=== PATIENT | female | born 1995 | race African-American/Black ===

== ENCOUNTER → 2016-04-01 15:37 | Outpatient (CLI) | payer BC ==
[~2016-04-01 15:37] MED LIST: HUMALOG 30100 UNITS/ SC; LANTUS INSULIN10 ML SC; PRENATAL COMPLE1 TAB PO
== END | disposition home or self-care (01) ==
LOC: D.ER 15:37 → D.LDO 15:37
DX: Z34.90 Encounter for supervision of normal pregnancy, unspecified, unspecified trimester (principal); V43.52XA Car driver injured in collision with other type car in traffic accident, initial encounter; Y92.410 Unspecified street and highway as the place of occurrence of the external cause

== ENCOUNTER 2016-04-14 20:30 | Outpatient (CLI) | payer BC ==
[2016-04-14 21:04] LABS: APPEARANCE HAZY (CLEAR); COLOR YELLOW (YELLOW); GLUCOSE NEGATIVE (NEGATIVE); KETONE LARGE mg/dL (NEGATIVE); LEUKOCYTE ESTERASE TRACE (NEGATIVE); NITRITE NEGATIVE (NEGATIVE); PROTEIN TRACE mg/dL (NEGATIVE); SPECIFIC GRAVITY 1.015 (1.005-1.020)
[2016-04-14 21:05] LABS: BILIRUBIN NEGATIVE (NEGATIVE)
[2016-04-14 21:07] LABS: BACTERIA MANY /hpf (NONE SEEN); MUCUS <1+ /lpf (NONE SEEN); RED CELLS - URINE 0-5 /hpf (0-5); WHITE CELLS - URINE 0-5 /hpf (0-5)
[2016-05-27] MEDS ORDERED: HUMALOG 30100 UNITS/ SC (09:25)
[2016-05-27] MEDS ORDERED: LANTUS INSULIN10 ML SC (09:25)
[2016-05-27] MEDS ORDERED: PRENATAL COMPLE1 TAB PO (09:25)
[2016-06-21] MEDS ORDERED: SYNTHROID100 MCG PO (13:48)
[2016-06-22 10:42] VITALS: BMI 32.3
== END 2016-04-15 07:15 | disposition home or self-care (01) ==
LOC: D.LD 20:30 → D.LDO 20:30 → D.LD 21:24 → D.LDO 04-15 07:15
PROVIDERS: Obstetrics & Gynecology
DX: O21.9 Vomiting of pregnancy, unspecified (principal)

== ENCOUNTER → 2016-05-06 10:46 | Outpatient (CLI) | payer BC ==
[~2016-05-06 10:46] MED LIST changes: +IBUPROFEN600 MG PO; +PERCOCET 5-3251 TAB PO; +SYNTHROID100 MCG PO
[2016-06-22 10:42] VITALS: BMI 32.3
== END | disposition home or self-care (01) ==
LOC: D.LDO 10:46
DX: O24.013 Pre-existing type 1 diabetes mellitus, in pregnancy, third trimester (principal); Z3A.32 32 weeks gestation of pregnancy

== ENCOUNTER → 2016-05-10 09:55 | Outpatient (CLI) | payer BC ==
[2016-06-22 10:42] VITALS: BMI 32.3
== END | disposition home or self-care (01) ==
LOC: D.LDO 09:55
DX: O24.913 Unspecified diabetes mellitus in pregnancy, third trimester (principal); Z3A.32 32 weeks gestation of pregnancy

== ENCOUNTER → 2016-05-13 10:05 | Outpatient (CLI) | payer BC ==
[2016-06-22 10:42] VITALS: BMI 32.3
== END | disposition home or self-care (01) ==
LOC: D.LDO 10:05
DX: O24.913 Unspecified diabetes mellitus in pregnancy, third trimester (principal); Z3A.33 33 weeks gestation of pregnancy

== ENCOUNTER → 2016-05-14 19:34 | Outpatient (CLI) | payer BC ==
[2016-06-22 10:42] VITALS: BMI 32.3
== END | disposition home or self-care (01) ==
LOC: D.LABREF 19:34 → D.LDO 19:34
DX: O36.8130 Decreased fetal movements, third trimester, not applicable or unspecified (principal); Z3A.33 33 weeks gestation of pregnancy; O24.313 Unspecified pre-existing diabetes mellitus in pregnancy, third trimester; E11.9 Type 2 diabetes mellitus without complications

== ENCOUNTER → 2016-05-17 10:00 | Outpatient (CLI) | payer BC ==
[2016-06-22 10:42] VITALS: BMI 32.3
== END | disposition home or self-care (01) ==
LOC: D.LDO 10:00
DX: O24.913 Unspecified diabetes mellitus in pregnancy, third trimester (principal); Z3A.33 33 weeks gestation of pregnancy

== ENCOUNTER → 2016-05-20 13:48 | Outpatient (CLI) | payer BC ==
[2016-06-22 10:42] VITALS: BMI 32.3
== END | disposition home or self-care (01) ==
LOC: D.LDO 13:48
DX: O24.913 Unspecified diabetes mellitus in pregnancy, third trimester (principal); Z3A.34 34 weeks gestation of pregnancy

== ENCOUNTER → 2016-05-24 17:57 | Outpatient (CLI) | payer BC ==
[2016-06-22 10:42] VITALS: BMI 32.3
== END | disposition home or self-care (01) ==
LOC: D.LDO 17:57
DX: O24.913 Unspecified diabetes mellitus in pregnancy, third trimester (principal); Z3A.34 34 weeks gestation of pregnancy

== ENCOUNTER → 2016-05-27 09:10 | Outpatient (CLI) | payer BC ==
[2016-06-22 10:42] VITALS: BMI 32.3
== END | disposition home or self-care (01) ==
LOC: D.LDO 09:10
DX: O24.313 Unspecified pre-existing diabetes mellitus in pregnancy, third trimester (principal); Z3A.35 35 weeks gestation of pregnancy

== ENCOUNTER → 2016-05-31 12:29 | Outpatient (CLI) | payer BC ==
[2016-06-22 10:42] VITALS: BMI 32.3
== END | disposition home or self-care (01) ==
LOC: D.LDO 12:29
DX: O24.913 Unspecified diabetes mellitus in pregnancy, third trimester (principal); Z3A.35 35 weeks gestation of pregnancy

== ENCOUNTER → 2016-06-03 14:04 | Outpatient (CLI) | payer BC ==
[2016-06-22 10:42] VITALS: BMI 32.3
== END | disposition home or self-care (01) ==
LOC: D.LDO 14:04
DX: O26.893 Other specified pregnancy related conditions, third trimester (principal); Z3A.36 36 weeks gestation of pregnancy

== ENCOUNTER → 2016-06-07 11:55 | Outpatient (CLI) | payer BC ==
[2016-06-22 10:42] VITALS: BMI 32.3
== END | disposition home or self-care (01) ==
LOC: D.LDO 11:55
DX: O24.913 Unspecified diabetes mellitus in pregnancy, third trimester (principal); Z3A.36 36 weeks gestation of pregnancy

== ENCOUNTER → 2016-06-10 11:25 | Outpatient (CLI) | payer BC ==
[~2016-06-10 11:25] MED LIST changes: -IBUPROFEN600 MG PO; -PERCOCET 5-3251 TAB PO; -SYNTHROID100 MCG PO
== END | disposition home or self-care (01) ==
LOC: D.LDO 11:25
DX: O24.913 Unspecified diabetes mellitus in pregnancy, third trimester (principal); Z3A.37 37 weeks gestation of pregnancy

== ENCOUNTER → 2016-06-14 13:06 | Outpatient (CLI) | payer BC ==
[~2016-06-14 13:06] MED LIST changes: +IBUPROFEN600 MG PO; +PERCOCET 5-3251 TAB PO; +SYNTHROID100 MCG PO
[2016-06-22 10:42] VITALS: BMI 32.3
== END | disposition home or self-care (01) ==
LOC: D.LDO 13:06
DX: O24.419 Gestational diabetes mellitus in pregnancy, unspecified control (principal); Z3A.37 37 weeks gestation of pregnancy

== ENCOUNTER → 2016-06-17 09:06 | Outpatient (CLI) | payer BC ==
[2016-06-22 10:42] VITALS: BMI 32.3
== END | disposition home or self-care (01) ==
LOC: D.LDO 09:06
DX: Z34.93 Encounter for supervision of normal pregnancy, unspecified, third trimester (principal); Z3A.38 38 weeks gestation of pregnancy

== ENCOUNTER → 2016-06-18 21:08 | Outpatient (CLI) | payer BC ==
[2016-06-18 21:42] LABS: APPEARANCE CLEAR (CLEAR); BILIRUBIN NEGATIVE (NEGATIVE); COLOR YELLOW (YELLOW); GLUCOSE NEGATIVE (NEGATIVE); KETONE NEGATIVE (NEGATIVE); LEUKOCYTE ESTERASE 1+ (NEGATIVE); NITRITE NEGATIVE (NEGATIVE); PROTEIN NEGATIVE (NEGATIVE); UROBILINOGEN NORMAL (NORMAL)
[2016-06-18 21:44] LABS: BACTERIA MANY /hpf (NONE SEEN); MUCUS <1+ /lpf (NONE SEEN); RED CELLS - URINE 0-5 /hpf (0-5)
[2016-06-22 10:42] VITALS: BMI 32.3
== END | disposition home or self-care (01) ==
LOC: D.LDO 21:08
PROVIDERS: Obstetrics & Gynecology
DX: Z34.03 Encounter for supervision of normal first pregnancy, third trimester (principal); Z3A.38 38 weeks gestation of pregnancy; R51 Headache

== ENCOUNTER → 2016-06-21 13:41 | Outpatient (CLI) | payer BC | END | disposition home or self-care (01) | LOC: D.LDO 13:41 | DX: O24.913 Unspecified diabetes mellitus in pregnancy, third trimester (principal); Z3A.38 38 weeks gestation of pregnancy ==

== ENCOUNTER 2016-06-22 10:15 | Inpatient (IN) | payer BC ==
[2016-06-22] VITALS (11 sets, daily range): BP systolic 120–160; BP diastolic 64–91; Ht 165.1 cm; Wt 88.0 kg
[~2016-06-22] VITALS: Ht 165.1 cm; Wt 88.0 kg
[~2016-06-22 10:15] MED LIST changes: -IBUPROFEN600 MG PO; -PERCOCET 5-3251 TAB PO
[2016-06-22 10:47] LABS: HEMATOCRIT 36.7 % (36.0-48.0); HEMOGLOBIN 12.3 g/dL (12-16); MCH 27.6 pg (26.0-34.0); MCHC 33.5 g/dL (31.0-37.0); MCV 82.5 fL (80.0-100.0); MEAN PLATELET VOLUME 11.1 fL (7.4-10.4); RBC 4.45 10x6/uL (4.00-5.40); RDW 13.7 % (11.5-14.5); WBC 10.7 10x3/uL (4.8-10.8)
--- NOTE | 2016-06-22 14:48 | NUR ---
PALPATED FUNDUS FIRM AND MIDLINE
--- NOTE | 2016-06-22 15:00 | NUR ---
PT WAS RECEIVED FROM RECOVER POST C-SEC. SHE IS AWAKE AND ALERT. FAMILY AT BEDSIDE. GEN- AWAKE AND ALERTL LUNGS- CLEAR. HEART- RRR. ABD - SOFT WITH TENDERNESS. FUNDUS FIRM. PT GUARDING. BULKY DRESSING OVER BIKINI LINE INCISION. EXT PULSE PALPABLE. SCD'S NOTE LE. ICE PACK PLACED OVER INCISION. SMALL LOCIA RUBRA. WEINER CATH INTACT AND IS SECURED TO R THIGH. 75 CC Y[place]ASTA COLORED URINE NOTED IN BAG. IV PATENT R FOREARM. NS WITH PIT INFUSING AT 125 CC/HR. DEMEROL FRAME REPAIRER 10 MG Q 10 MIN. PT EDUCATED ON FRAME REPAIRER, INCENTIVE SPIROMETRY, WEINER, SCD'S, MONITORING OF VS AND ICE PACK. PT VERBALIZES UNDERSTANDING.
--- NOTE | 2016-06-22 15:30 | NUR ---
PT INSTRUCTED ON CLEAR LIQUIDS. GAVE HER ICE WATER AND ICE CHIPS FOR NOW.
--- NOTE | 2016-06-22 17:53 | NUR ---
PT IS HOLDING HER BABY. GETTING READY TO EAT AND THEN BREASTFEED. PTS PAIN LEVEL IS A 4. UOP IS 750 CC. WEINER INTACT. IV PATENT R FOREARM- NS WITH PIT- 367 AND DILAUDID CAREER COACH 9.9 ML. HER BED PADS WERE CHANGED AND ANA PADS. MODERATE LOCIA RUBRA. BED IS LOW SIDE RAILS UP X 2 AND CALL LIGHT IN REACH.
--- NOTE | 2016-06-22 19:25 | NUR ---
PM ROUNDS MADE, PT VISITING WITH FOB, BABY AT BEDSIDE IN OPEN CRIB CART, INFORMED PT THAT I WILL BE BACK SHORTLY TO DO ASSESSMENT, PT VERBALIZES UNDERSTANDING, DENIES NEEDS AT THIS TIME
--- NOTE | 2016-06-22 20:25 | NUR ---
ASSESSMENT PER FLOW SHEET, VS OBTAINED, IV IN LEFT WRIST INTACT WITH NO REDNESS OR EDEMA INFUSING VIA PUMP NS WITH PITOCIN AT 125 ML/HR, DEMEROL TRUST AND ESTATES ATTORNEY TO DELIVER 10MG/10MINS PER PT'S DEMAND FOR PAIN MANAGEMENT, FF, ML, U/1, LITE BLEEDING WITH NO CLOTS NOTED, BIKINI INC WITH LARGE DRESSING CDI WITH NO DRAINAGE NOTED, ICE PACK TO ABD, PT REPORTS FLATUS, WEINER CATH INTACT DRAINING DARK YELLOW URINE, PT ENC TO DRINK PLENTY OF FLUIDS, PT REQUESTED AND SERVED ICE CHIPS AT THIS TIME, SCD'S ON AND WORKING PROPERLY, DINNER TRAY AND TRASH REMOVED, PT DENIES FURTHER NEEDS
--- NOTE | 2016-06-22 21:30 | NUR ---
SPOKE TO DR EELNA REGARDING PT'S ORDERS FOR FSBS, DR ELENA REPORTS TO DO FSBS NOW, 1AM, AND 5AM, THEN CONTINUE WITH FASTING AND 1 HOUR POST PRANDIAL, ALSO, MAKE SURE THAT DAY SHIFT KNOWS TO CONS DR WILEY
--- NOTE | 2016-06-22 21:42 | NUR ---
PT BABY, FSBS 55, ASKED PT HOW SHE TAKES HER INSULIN, PT STATES "I TAKE 24 UNITS OF LANTUS AT NIGHT, I LAST TOOK THAT AT MIDNIGHT (06/22), AND THE HUMALOG , ITS A SLIDING SCALE, I TAKE 1 UNIT IF MY BLOOD SUGAR IS OVER 120 AND WHEN EATING 7 GRAMS OF CARBS, BEFORE AND AFTER, I TAKE 1 UNIT, I LAST DID THAT AT 8PM YESTERDAY", PT REPORTS JUST DRINKING JUICE WHEN BS IS LOW, INFORMED PT THAT I WILL INFORM THE DOCTOR OF BS AND HOW SHE TAKES HER INSULIN, PT VERBALIZES UNDERSTANDING
--- NOTE | 2016-06-22 21:47 | NUR ---
DR ELENA ON L&D UNIT, REPORT OF PTS BS, INSULIN REGIMEN, AND WHAT PT DOES FOR LOW BS, DR ELENA REPORTS TO GIVE PT MILK, TERESA CRACKERS AND PEANUT BUTTER
--- NOTE | 2016-06-22 21:55 | NUR ---
PT REFUSES TERESA CRACKERS AND PEANUT BUTTER, STATES "I USUALLY JUST DRINK JUICE", PT SERVED ORANGE JUICE AT THIS TIME, INFORMED PT THAT I WILL BE BACK IN ABOUT 20-30 MINUTES TO RECHECK BS, PT VERBALIZES UNDERSTANDING
--- NOTE | 2016-06-22 22:30 | NUR ---
FSBS 50, PT INST TO DRINK 2% MILK, EAT TERESA CRACKERS AND PEANUT BUTTER SINCE BS IS LESS THAN IT WAS EARLIER, PT VERBALIZES UNDERSTANDING, PT HOLDING BABY, FOB AT BEDSIDE
--- NOTE | 2016-06-22 23:30 | NUR ---
PT BATTERY TEST ENGINEER LIGHT, PT READY TO SEND BABY TO NSY FOR A SHORT TIME, VS OBTAINED, WEINER CATH EMPTIED, FSBS 59, PT REQUESTED GRAPE JUICE ONLY, ANA CARE DONE WITH WET WARM WASH CLOTHS, ANA PAD CHANGED, LITE BLEEDING NOTE WITH NO CLOTS, FRESH ICE PACK TO ABD, PT RATES INC PAIN 07/21, PT USING ADMINISTRATIVE LIAISON INST, DENIES FURTHER NEEDS AT THIS TIME
--- NOTE | 2016-06-23 01:05 | NUR ---
PT AWAKE, FSBS 61
--- NOTE | 2016-06-23 02:08 | NUR ---
NEW BAG OF NS WITH PITOCIN HUNG IV INFUSING VIA PUMP 125 ML/HR, PT REQUESTED AND SERVED LEMON NIKOLAI SODA, PT RATES INC PAIN 07/21, STATES "IT'S FEELING MUCH BETTER", PT DENIES FURTHER NEEDS, FOB ASLEEP IN RECLINER, PT HOLDING BABY
--- NOTE | 2016-06-23 02:40 | NUR ---
PT SCIENTIFIC ASSOCIATE LIGHT, BABY TO NSY VIA OPEN CRIB CART PER THIS RN
[2016-06-23 04:15] VITALS: BP 123/75
--- NOTE | 2016-06-23 04:15 | NUR ---
PT HOLDING BABY, BABY TO NSY VIA OPEN CRIB CART PER THIS RN, VS OBTAINED, I&O'S COLLECTED, FSBS 71, BLUE CHUX AND ANA PAD CHANGED, LITE BLEEDING NOTED WITH NO CLOTS, FRESH ICE PACK, PT RATES INC PAIN AND CRAMPING 2/10, DENIES FURTHER NEEDS
--- NOTE | 2016-06-23 06:12 | NUR ---
PT JUST FINISHING UP FEEDING BABY, ADM TORADOL SIVP PER MD ORDERS, AND PERCOCET PO PER MD ORDERS, INFORMED PT THAT I WILL BE BACK SHORTLY TO SALINE LOCK IV AND REMOVE WEINER, PT VERBALIZES UNDERSTANDING
[2016-06-23 06:16] LABS: RAPID PLASMA REAGIN Non Reactive (Non Reactive)
[2016-06-23 06:32] LABS: BASOPHILS 0.1 % (0.0-2.0); EOSINOPHILS 0.1 % (0-7); HEMATOCRIT 30.3 % (36.0-48.0); HEMOGLOBIN 10.2 g/dL (12-16); IMMATURE GRANULOCYTES 0.7 % (0-5); LYMPHOCYTES 8.5 % (15-50); MCH 28.2 pg (26.0-34.0); MCHC 33.7 g/dL (31.0-37.0); MCV 83.7 fL (80.0-100.0); MEAN PLATELET VOLUME 11.6 fL (7.4-10.4); MONOCYTES 8.5 % (2-11); NEUTROPHILS 82.1 % (40-80); PLATELET COUNT 175 10x3/uL (130-400); RBC 3.62 10x6/uL (4.00-5.40); RDW 14.2 % (11.5-14.5)
[2016-06-23 06:33] LABS: WBC 15.9 10x3/uL (4.8-10.8)
--- NOTE | 2016-06-23 07:00 | NUR ---
IV CONVERTED TO SALINE LOCK, FLUSHED WITH NO DIFFICULTY, WEINER CATH REMOVED, TIP INTACT, PT INST ON USING CALL LIGHT AND [place] HAT WHEN NEEDING TO VOID, PT VERBALIZES UNDERSTANDING, PT DENIES PAIN AT THIS TIME, REPORTS THAT THE PAIN MED REALLY HELPED, PT DENIES NEEDS AT THIS TIME
[2016-06-23 07:30] VITALS: BP 136/71
--- NOTE | 2016-06-23 07:40 | NUR ---
PT WAS RECEIVED THIS AM LYING IN BED. SHE OFFERS NO COMPLAINTS THIS AM. HER MOTHER IS AT BEDSIDE. GEN- AWAKE AND ALERT. LUNGS- CLEAR. HEART- RRR. ABD SOFT, WITH TENDERNESS. FUNDUS FIRM AT U 1. INCISION COVERED WITH BULKY DRESSING. CLEAN AND DRY. MOD LOCIA RUBRA. BED IS LOW, SIDE RAILS UP X 2 AND CALL LIGHT IN REACH. WEINER D'CD AND IV WAS SALINE LOCKED.
--- NOTE | 2016-06-23 09:00 | NUR ---
PT IS RESTING IN BED. VISISITNG WITH HER MOTHER. OFFERS NO COMPALINTS AT THIS TIME. BED IS LOW, SIDE RAILS UP X 2 AND CALL LIGHT IN REACH.
--- NOTE | 2016-06-23 09:04 | NUR ---
Jennifer Marrero HI@8:30 S: Patient states she delivered by , baby was 8 pounds, she feels good, sore, is going fine. O: Patient sitting up in bed watching TV, Mother at bedside, infant in nursery. Congratulated on delivery. Encouraged to latch on demand, this will help with establishing her milk supply. Explain breast milk composition, supply and demand, and feeding cues. does take time and patience in the beginning. It's normal for infant to feed often. Exclusively breastfed babies will eat 8-12 times in 24 hours, and sometimes want to eat every 2 or hours or sooner, this is normal. Encouraged to latch infant for every feeding. Make sure infant is turn tummy to tummy, nose opposite of nipple, and gently support head, to allow baby to self latch. If she experiences any pain with please let us know. It's usually infant latch, and that's any easy fix. Provided and explain handouts on feeding cues, skin to skin, positions, what to expect the first week, engorgement, and waking a sleeping baby. Praised for . Offered to make [facility] appointment, provided appointment date of 07/22/16 at 1:00pm. Asked if any question or concerns declined at this time. A: First time mother, P: Continue to support exclusively . Tonio Pathak, CLC
--- NOTE | 2016-06-23 11:42 | NUR ---
PT REQUESTED PAIN MED. PAIN IS ABOUT A SIX. SHE HAS BEEN SITTING UP AND AMBULATING IN ROOM. PAIN MED GIVEN.
--- NOTE | 2016-06-23 12:44 | NUR ---
PT REQUEST TO TAKE A SHOWER. PT ASSISTED TO SHOWER. SHE VOIDED X 1 WITH LARGE CLOT NOTED. VOIDED 100 CC. DRESSING REMOVED AFTER SHOWER. INCISION PATTED DRY WITH TOWEL.PT INSTRUCTED ON INCISION CARE. DERMABOND INTACT. MESH PANTIES AND NEW PAD PUT ON. PT DRESSED IN HER CLOTHES. PT SITTING ON SIDE OF BED.
--- NOTE | 2016-06-23 12:45 | NUR ---
PT IS EATING LUNCH, SITTING ON SIDE OF BED. TOLERATING WELL.
--- NOTE | 2016-06-23 13:05 | NUR ---
PT WAS MOVED FROM 1214 TO 1257 ON [facility]. MOTHER HELPED HER MOVE HER BELONGINGS.
--- NOTE | 2016-06-23 14:40 | NUR ---
PT STATES PAIN IS A 6 AND WOULD LIKE SOMETHING ELSE FOR PAIN. GAVE HER A MOTRIN 600 MG .
--- NOTE | 2016-06-23 15:11 | NUR ---
PT WAS MADE AN APPT WITH DR WILEY, JEWELRY MAKING INSTRUCTOR FOR 07/01/16 AT 1:00 FOR FU OF HER IDDM.
--- NOTE | 2016-06-23 15:47 | NUR ---
pt request pain med. states pain is a 6 out of 10. percocet given po/
--- NOTE | 2016-06-23 16:06 | NUR ---
BLOOD SUGAR IS 88. BS NEEDS TO BE CHECKED 1 HR POSTPRANDIAL.
--- NOTE | 2016-06-23 18:00 | NUR ---
entered room to check bs. pt is sitting on side of bed- states is just starting to eat dinner. family is at bedside. infant in room. requested pt to call nurse when is finished with meal.
--- NOTE | 2016-06-23 18:50 | NUR ---
report to pm shift.
--- NOTE | 2016-06-23 19:30 | NUR ---
PT RINGS CALL LIGHT TO NOTIFIED NURSING STAFF THAT IT HAS BEEN 1 HR SINCE SHE HAS EATEN AND IS READY FOR A FSBS TO BE DONE.
[2016-06-23 19:35] VITALS: BP 123/68
--- NOTE | 2016-06-23 19:35 | NUR ---
THIS RN TO BEDSIDE TO PERFORM FSBS. RESULTS ARE 162. NO ORDERS AT THIS TIME FOR A SLIDING SCALE. PT CURRENTLY SITTING ON SIDE OF BED. REPORTS INCISIONAL PAIN 6/10 AFTER RETURNING FROM AMBULATING FROM NURSERY. PERCOCET OFFERED. PT ACCEPTS. SEE EMAR. V/S OBTAINED. SEE FLOWSHEET. PT TO LYING BACK IN BED FOR SHIFT ASSESSMENT. PT DENIES HAVING PASSED FLATUS OF YET. TEACHING PROVIDED. PT DENIES FEELING GASSY OR PRESSURE FROM GAS. BREATHSOUNDS CL\=, ABD SOFT, NON DISTENDED. BOWEL SOUNDS PRESENT X 4. LOW TRANSVERSE INCISION C/D/I W/DERMA TIRADO. PT REPORTS ABLE TO VOID W/OUT DIFFICULTY. REPORTS MODERATE LOCHIA. EDEMA NOTED TO LOWER EXTREMITIES AT ANKLES W/1+ PITTING BILATERALLY NOTED. PT DENIES PAIN IN FEET OR ANKLES. PT QUESTIONS IF IT IS NORMAL TO FEEL A SHARP PAIN IN HER RT SHOULDER WHEN SHE PERFORMS HER I.S. PT TEACHING PROVIDED ABOUT TRAPPED AIR AND THAT YES, IT CAN BE NORMAL. ADDITIONAL TEACHING PROVIDED IN REGARDS TO PT BEING ABLE TO PASS GAS. WAYS TO HELP GIVEN. CONTINUED POC DISCUSSED W/PT. PT INSTRUCTED THAT ONCE HER PAIN MEDICATION HAS A CHANCE TO WORK, PT NEEDS TO AMBULATE IN HALLS AGAIN BEFORE SHE PLANS TO REST TONIGHT. PT VERBALIZES UNDERSTANDING AND IS AGREEABLE. FRESH ICE WATER SERVED. DINNER TRAY REMOVED FROM ROOM. PT DENIES FURTHER NEEDS AT THIS TIME. PT REMAINS IN BED. BED IN LOW POSITION. SIDE RAILS UP X 2. CALL LIGHT AND PHONE AT PT'S SIDE. PT'S SIG OTHER IN ROOM W/ UP IN ARMS.
--- NOTE | 2016-06-23 20:45 | NUR ---
THIS RN TO BEDSIDE FOR ROUNDS AND PAIN REASSESSMETN. PT CURRENTLY AMBULATING IN ROOM. PAIN REASSESSED AT 06/21. PT REQUEST MOTRIN AT THIS TIME FOR ABD CRAMPING. MOTRIN 600MG PO GIVEN. SEE EMAR. FRESH DIET SPRITE SERVED. PT DENIES FURTHER NEEDS AT THIS TIME.
--- NOTE | 2016-06-23 21:45 | NUR ---
ROUNDS MADE FOR PAIN REASSESSMENT. PT CURRENTLY SITTING N SIDE OF BED GETTING READY TO NURSE . PAIN AND NEEDS ASSESSED. PT REPORTS PAIN 3/10 AND TOLERABLE. DENIES NEEDS AT PRESENT.
--- NOTE | 2016-06-23 23:37 | NUR ---
ROUNDS MADE. PT CURRENTLY LYING BED W/ TO BREAST. PAIN AND NEEDS ASSESSED. PT DENIES NEEDS AT PRESENT. RATES PAIN 3-4/10. DECLINES OFFER TO ADMIN PAIN MEDICATION AT THIS TIME. SIG OTHER REMAINS IN ROOM WITH PT.
--- NOTE | 2016-06-24 01:51 | NUR ---
ROUNDS MADE. PT RESTING WITH EYES CLOSED. RESPIRATIONS REGULAR, NO S/S OF DISTRESS NOTED. IN CRIB AT BEDSIDE. S/O ON COUCH SLEEPING, NO S/S OF DISTRESS NOTED. BED IN LOW POSITION WITH UPPER SIDE RAILS RAISED X2. CL AND PHONE WITHIN REACH.
--- NOTE | 2016-06-24 03:44 | NUR ---
ROUNDS MADE. PT CURRENTLY SITTING UP IN BED W/ TO BREAST. PT'S PAIN AND NEEDS ASSESSED. PT DENIES NEEDS, DECLINES OFFER TO BRING HER ANYTHING TO EAT OR DRINK AT THIS TIME. DECLINES OFFER OF PAIN MEDICATION AT THIS TIME. STATES "I'M FINE." PT ASKED TO RING CALL LIGHT ONCE SHE HAS FINISHED NURSING SO INFANT MAY BE TAKEN TO NURSERY FOR WEIGHING AND TESTING. PT VERBALIZES UNDERSTAND AND IS AGREEABLE.
--- NOTE | 2016-06-24 04:00 | NUR ---
PT RINGS CALL LIGHT. THIS RN TO ROOM. PT HAS FINISHED NURSING AND IS READY FOR INFANT TO GO TO NURSERY FOR TESTING. TRANSPORTED VIA CRIB TO NBN. INFANT WEIGHED. SHIRT AND BLANKETS CHANGED. BABY CRYING. THIS RN HOLDS INFANT TO SOOTH. QUIET. PARENTS STANDING AT NURSERY DOOR. RETURNED TO PARENTS. TRANSPORTED BACK TO ROOM VIA CRIB PER PARENTS. PT DENIES NEEDS AT THIS TIME.
--- NOTE | 2016-06-24 06:13 | NUR ---
THIS RN TO BEDSIDE FOR ROUNDING AND FASTING BLOOD SUGAR CHECK. PT CURRENTLY LYING ASLEEP IN BED W/ ON HER CHEST. PT AWAKENS EASILY. FSBS PERFORMED W/RESULTS OF 36. APPLE JUICE, TERESA CRACKERS, PEANUT BUTTER AND MILK SERVED. PT DRINKS APPLE JUICE IMMEDIATELY. PEANUT BUTTER ON TERESA CRACKERS SERVED TO PT. PT BEGINS EATING IMMEDIATELY. SIDE TABLE PLACED WITHIN REACH OF PT W/MILK W/IN PT'S REACH. PT INFORMED THAT HER BLOOD SUGAR WILL BE RECHECKED AT 0700. PT VERBALIZES UNDERSTANDING. PT QUESTIONED IF SHE FEELS DIFFERENT W/HER BLOOD SUGAR BEING SO LOW. PT STATES "A LITTLE BIT." PT AA&O X 4 AT PRESENT.
[2016-06-24 07:15] VITALS: BP 110/68
--- NOTE | 2016-06-24 07:15 | NUR ---
AM ASSESSMENT COMPLETED. PT REQUESTS PAIN MEDICATION, SEE EMAR FOR ALL MED ADM. PT DENIES HEAVY BLEEDING OR PASSING CLOTS. SR UP X 2, CALL LIGHT AND PHONE WITHIN REACH. PT SITTING UP IN THE BED, HOLDING . SIG OTHER AT BEDSIDE.
[2016-06-24] MEDS ORDERED: PERCOCET 5-3251 TAB PO (08:25)
[2016-06-24] MEDS ORDERED: IBUPROFEN600 MG PO (08:25)
--- NOTE | 2016-06-24 08:32 | OP ---
PATIENT NAME: ABDIRIZAK JEAN-BAPTISTE MEDICAL RECORD: [id number] :93 LOCATION:[id number] ADMISSION DATE:06/22/16 SURGEON: SOCORRO SAUNDERS MD DATE OF OPERATION: 06/22/2016 PREOPERATIVE DIAGNOSES: 1. Intrauterine at 39 weeks and 0 days. 2. Poorly controlled class C (type 1) diabetes. 3. Fetus large for gestational age, estimated weight greater than 4000 grams. POSTOPERATIVE DIAGNOSES: 1. Intrauterine at 39 weeks and 0 days. 2. Poorly controlled class C (type 1) diabetes. 3. Fetus large for gestational age, estimated weight greater than 4000 grams. 4. Delivered. SURGEON: Socorro Saunders MD. ANESTHESIA: Spinal anesthesia with Aubrey Catalan CRNA. PROCEDURE: Primary elective low-transverse . FINDINGS: Delivery of viable female from vertex presentation via primary elective low transverse under spinal anesthesia at 1338 p.m. with weight of 8 pounds 14 ounces and scores of 9 and 9 at 1 and 5 minutes respectively. No nuchal cord was noted. The cord was clamped and cut. The was bulb suctioned and handed to awaiting pediatric nursing personnel. The placenta was delivered manually intact 3-vessel cord at 1339 p.m. Twenty units of Pitocin in 1 liter of normal saline was begun IV. The fundus was noted to be firm. Normal appearing uterus, ovaries and tubes bilaterally. The patient went to the recovery room in stable condition, the infant to the nursery. DESCRIPTION OF PROCEDURE: After informed consent was given, the patient was taken to the operating room where spinal anesthesia was placed and found to be adequate. She was placed in a dorsal supine position with a leftward tilt. A Persaud catheter was placed with clear urine return noted. She was prepped and draped sterilely. When adequate anesthesia was established, a Pfannenstiel skin incision was made with scalpel and carried through to the underlying layer of fascia. The fascia was incised in the midline and fascial incision extended bilaterally with the Wesley scissors. The superior portion of the fascial incision was grasped with 2 Dennise clamps. The rectus muscles dissected off sharply and bluntly. Attention was then turned to the inferior portion of the fascial incision, which was again grasped with 2 Dennise clamps. The rectus muscles dissected off sharply and bluntly. Rectus muscles were in the midline, the peritoneum identified and entered bluntly with a finger. This incision was extended superiorly and inferiorly with good visualization of the bladder. The bladder blade was inserted and the vesicouterine peritoneum was grasped with the smooth pickups and entered sharply with Metzenbaum scissors. This incision was extended bilaterally and a bladder flap created digitally. The bladder blade was reinserted. The hysterotomy was created with a knife. This was extended bilaterally bluntly and the infant's head delivered atraumatically. Moderate meconium was noted at time of rupture of membranes. OPERATIVE REPORT [id number] ABDIRIZAK JEAN-BAPTISTE No nuchal cord was noted. The cord was clamped times 2 and cut. The was bulb suctioned and handed to awaiting pediatric nursing personnel. The placenta was delivered manually intact and passed off the field as specimen. Cord blood was obtained. The uterus was exteriorized, cleared of all clots and debris. The interior of the uterus was wiped with a moist lap sponge. The hysterotomy was then closed with 0 chromic in a running locked fashion in 2 layers, the second imbricating the first. Excellent hemostasis was noted. The uterus was returned to the abdomen. The abdomen was irrigated profusely and noted to be hemostatic. Cedrick dust was placed over the hysterotomy to aid additionally in hemostasis. The rectus muscles were reapproximated in the midline with 3 interrupted chromic sutures. The fascia was closed with 1-0 Vicryl in a running fashion, locking the first suture. The subcutaneous tissue was irrigated, any bleeders cauterized with the Bovie and when noted to be sufficiently dry was closed with 3-0 Vicryl in a running fashion and the skin was closed with 3-0 Monocryl in subcuticular fashion. Dermabond and pressure dressing were applied. Clear urine was noted at completion of the procedure. The patient tolerated procedure well. Sponge, lap, needle and instrument counts reported correct times 2 and the patient went to recovery room in stable condition, the infant to the nursery. ESTIMATED BLOOD LOSS: 400 cc. URINE OUTPUT: 200 cc. SPECIMENS: Placenta and cord blood. COMPLICATIONS: None. TRANSINT:[id number] Voice Confirmation ID: [id number] DOCUMENT ID: [id number] SOCORRO SAUNDERS MD at 0832 CC: [id number] DICTATION DATE: 06/22/16 1457 BELTING AND WEBBING INSPECTOR: 06/22/161952 ADM IN [place] [id number] [facility] [place] [address]
--- NOTE | 2016-06-24 08:35 | NUR ---
dr. guaman on unit, to room speaking with pt. pt is at this time. fsbs is 111 mg/dl. md aware. webmethods consultant in room also.
--- NOTE | 2016-06-24 09:08 | NUR ---
Jennifer Speed 06/24/16 LE@ 8:00-9:00 S: Patient states is going fine. O: Patient lying in bed, FOB in walking in room holding , observed feeding cues, television on. Offered to assist with latching , patient states her nipples are sore. Left nipples looks red on the tip, possible due to how is latching, no trauma seen on nipples. Explain to patient how to latch to the breast, turn infant tummy to tummy. Infant latched on the right breast at 8:12 in laid back position, round cheeks, mouth 140 degrees, sucking in a rocking motion, both mother and infant appear content, patient states no discomfort. Infant latched on right breast from 8:12-8:38. Patient is engorged, to help apply ice packs to help with swelling for 2-3 minutes, following with warm packs to help the milk to be release for 2-3 minutes. Explain how to verify infant is latched correctly. Provided handout on engorgement and explained. Latch to the breast for every feeding, feed on demand; feeding cues (explained). This will also help with engorgement. does take time. Infant latched on left breast at 8:48, laid back position, round cheeks, mouth 140 degrees, sucking in a rocking motion, both mother and appear content, patient states no discomfort. Asked if any questions or concerns, all declined at this time. Verifying is latched correctly to the breast for every feeding will help prevent sore nipple, it's normal for your nipples to be sensitive but they shouldn't hurt. Apply lanolin following feeding, keeps nursing pads clean and dry. Encouraged to latch for every feeding, explain growth spurts, benefits of skin to skin, and what to expect the first week with a breastfed infant (provided handout). Praised for , will follow up, provided patient with work cell number, please call with any questions or concerns. A: Patient states her nipples are sore P: Showed patient how to latch correctly and how to verify infant latch. Continue to support exclusively Kayley Pathak, CLC
--- NOTE | 2016-06-24 10:00 | NUR ---
room check, pt is sitting up in the bed, denies needs at this time. speaking with pt regarding mmr status, pt is non-immune, pt states she does not want to take an immunization at this time. denies other needs at this time. sr up x 2, call light and phone within reach.
--- NOTE | 2016-06-24 11:30 | NUR ---
diet lemon [place] soda served to pt.
--- NOTE | 2016-06-24 11:45 | NUR ---
dietary serves lunch tray, pt denies needs at this time. sr up x 2, call light and phone within reach. pt is dressed for discharge.
--- NOTE | 2016-06-24 14:15 | NUR ---
discharge instructions explained to pt, with copies given, and copies of pp instruction sheet, incision care, prescriptions and appt card given to pt. pt denies questions. pt dressing for discharge. sig other at bedside. pt's family member goes to get her car for ride home.
--- NOTE | 2016-06-24 14:30 | NUR ---
discharged pt by wheelchair, with infant in carseat, taken to private vehicle by volunteer.
== END 2016-06-24 14:30 | disposition home or self-care (01) | DRG 766 ==
LOC: D.LD 10:15 → D.WS 10:15 → D.LD 12:00 → D.WS 13:16 → D.LD 06-23 15:15
PROVIDERS: ADMIT Specialist
PROC: 10D00Z1 Extraction of Products of Conception, Low, Open Approach (ICD-10-PCS; principal; 2016-06-22 12:00)
DX: O24.02 Pre-existing type 1 diabetes mellitus, in childbirth (principal); E10.9 Type 1 diabetes mellitus without complications; Z3A.39 39 weeks gestation of pregnancy; Z37.0 Single live birth; Z79.4 Long term (current) use of insulin; O36.63X0 Maternal care for excessive fetal growth, third trimester, not applicable or unspecified; O99.284 Endocrine, nutritional and metabolic diseases complicating childbirth; E03.9 Hypothyroidism, unspecified; O99.824 Streptococcus B carrier state complicating childbirth

== ENCOUNTER 2020-05-13 14:46 | Outpatient (CLI) | payer BC ==
[2016-06-22 10:42] VITALS: BMI 32.3
[~2020-05-13 14:46] MED LIST changes: +IBUPROFEN600 MG PO; +LANTUS INS100 UNITS/ SQ; -LANTUS INSULIN10 ML SC; +PERCOCET 5-3251 TAB PO
== END 2020-05-13 18:15 | disposition home or self-care (01) ==
LOC: D.LDO 14:46
PROVIDERS: ATTEND Student in an Organized Health Care Education/Training Program
DX: E10.8 Type 1 diabetes mellitus with unspecified complications (principal)